=== PATIENT | female | born 1990 | race African-American/Black ===

== ENCOUNTER 2017-12-11 08:11 | Observation (INO) ==
--- NOTE | 2017-12-11 08:21 | Emergency Department Report ---
Neuro HPI - General Stated Complaint: poss seizures, cannot speak Time Seen by Provider: 12/11/17 08:20 Source: patient, family Mode of arrival: ambulatory Limitations: altered mental status - History of Present Illness HPI Narrative: Patient is a 27-year-old female presents emergent for evaluation of possible seizures, stroke. Patient awoke approximately 745 this morning, at that time was only able to say one word leg. Patient also appeared to be weak in her left her upper or lower extremity. Patient had multiple episodes where she appeared to be shaking. Patient was brought to the ER for evaluation. Per significant other patient has a history of Hadley Romberg, also did have a similar episode to this 2 weeks ago which resolved within an hour. Patient is also newly diagnosed . Onset (ago): hour(s) Time: 0745 Time Estimated: No Timing confirmed by: family member Location: speech, left arm, left leg History of same: Yes Severity: moderate Relieving factors: none Context: sudden onset - Related Data Home Medications: Home Medications Medication Instructions Recorded Confirmed No known Home medications [No home 12/11/17 12/11/17 meds] Allergies/Adverse Reactions: Allergies Allergy/AdvReac Type Severity Reaction Status Date / Time morphine Allergy Intermediate Itching Verified 12/11/17 09:29 haloperidol [From Haldol] AdvReac Intermediate muscle Verified 12/11/17 09:29 spasms Review of Systems Limitations: ROS unobtainable due to patient's medical condition [facility] Patient Stated Medical History Dental Problems Yes: teeth pulled at dentist office Asthma Yes: inhaler as needed Other Reproductive Yes: ectopic Surgical History: Appendectomy. cholecystectomy. D&C. Right salpingectomy - Social History Smoking status: Current every day smoker Alcohol intake frequency: does not drink Current occupational status: unemployed Physical Exam - Limitations Limitations: no limitations - Eye Eye exam: Present: PERRL, EOMI - ENT ENT exam: Present: normal oropharynx, mucous membranes moist, TM's normal bilaterally - Neck Neck exam: Present: trachea midline. Absent: tenderness - Chest Chest inspection: Present: symmetric chest wall rise. Absent: tenderness, rash - Respiratory Respiratory exam: Present: normal lung sounds bilaterally. Absent: respiratory distress, wheezes, stridor - Cardiovascular Cardiovascular exam: Present: regular rate, normal rhythm, normal heart sounds - Abdominal Exam Abdominal exam: Present: soft, normal bowel sounds. Absent: distention, tenderness - Skin Skin exam: Present: warm, dry - Expanded Neurological Exam Speech: Present: expressive aphasia Cranial nerves: Normal: EOM function (II, III, IV, ), facial palsy (VII), gag reflex (IX), spinal accessory function (XI), tongue deviation (XII) Motor strength - LUE: 0/5 Motor strength - RUE: 5/5 Motor strength - LLE: 0/5 Motor strength - RLE: 5/5 DTR: 2+: biceps (L), biceps (R), patellar (L), patellar (R) Coma scale eye opening: spontaneous Coma scale motor response: obeys commands Coma scale verbal response: incomprehensible Coma scale total: 12 Neuro Symptoms/Deficit - MDM Narrative Medical decision making narrative: Patient's symptoms slowly improving patient able to now converse, does have increasing strength of the extremities on the left. Did discuss with Dr. adames we'll place patient in the hospital observation status - Medical Records Attestation: I reviewed the patient's medical records. - Lab Data Attestation: I reviewed the patient's lab results. Result diagrams: 12/11/17 08:26 12/11/17 08:26 - Radiology Data Attestation: I reviewed the patient's radiology results. CT head: No acute intracranial abnormalities Disposition Prescriptions: No Action No known Home medications [No home meds] 0 #0 misc
[2017-12-11] MEDS: SALINE FLUSH 10ml SYRINGE IVF PRN ×3 (08:25→11:39)
--- NOTE | 2017-12-11 08:46 | CT Scan Report ---
Indication: left-sided weakness, only able to say leg hypertensive rule PROCEDURE: CT head/brain wo con: Encounter: Initial Comparison: None Technique: Axial CT images through the head were performed without contrast. Iterative Reconstruction dose reducing technique was utilized. FINDINGS: The ventricles are of normal size, shape, and configuration for the patient's age. There is no evidence of acute intracranial hemorrhage, midline displacement, or mass effect. The CT attenuation of the brain parenchyma is normal within the cerebellum, brain stem, and cerebral hemispheres. The tympanic cavities and mastoid air cells are free of appreciable disease. There are no definite fractures of the skull base, calvarium, or visualized portion of the midface. Trace mucosal thickening in the sinuses. IMPRESSION: No acute intracranial hemorrhage or extended infarct signs. These results were discussed with Dr. Marino at 0840 on December 11, 2017, four minutes after the conclusion of the study. .
[2017-12-11] MEDS ORDERED: KETOROLAC 30 MG/ML INJECTION IVP ONE (09:47)
[2017-12-11] MEDS ORDERED: FentaNYL 100 MCG/2 ML INJECTION IVP ONE ×2 (10:33→11:29)
[2017-12-11 10:46] VITALS: RESP 18
[2017-12-11] MEDS ORDERED: PROCHLORPERAZINE 10 MG/2 ML INJECTION IVP ONE (12:15)
--- NOTE | 2017-12-11 12:30 | Magnetic Resonance Report ---
Indication: left-sided neuro deficits rule out stroke CT negative PROCEDURE: MR head/brain wo con: Encounter: Initial Comparisons: Head CT from earlier today Technique: Multiplanar, multisequence, MR imaging of the head without contrast was acquired. FINDINGS: The ventricles are of normal size, shape, and contour for the patient's age. The brain stem, cerebellum, and cerebral hemispheres have a normal morphologic appearance as well as MR signal intensity on all pulse sequences. There are no areas of restricted diffusion on diffusion weighted imaging to suggest an acute infarct. There is no evidence of an intracranial mass lesion, intracranial hemorrhage, or hydrocephalus. The visualized portions of the orbits, calvarium and skull base demonstrate no significant abnormality. Mild mucosal thickening seen in the right anterior ethmoid air cells and sphenoid sinuses. IMPRESSION: No acute intracranial abnormality. .
[2017-12-11 13:22] VITALS: BP 133/74; TEMP 96.8; O2SAT 100
[2017-12-11 13:57] VITALS: BMI 22.6
[2017-12-11 15:14] VITALS: PULSE 71
[2017-12-11] MEDS ORDERED: ACETAMINOPHEN 325 MG TABLET PO ONE (15:17)
--- NOTE | 2017-12-11 18:02 | History & Physical Report ---
History of Present Illness Date: 12/11/17 HPI: Pt reports she comes in today because her fiance noticed her having seizure like activity two times this morning. Pt reports she doesn't remember much from this morning other than coming into the hospital. No family is at bedside to help with hx. Pt reports she remembers her mom telling her she had a couple of seizures around age 9 but nothing since until 1 week ago when she again had seizure like activity when she was with her family at an outdoors event. Her family thought it was related to the heat so they sat her down. In these episodes, pt reports she has been told she "shakes" for a couple of minutes and then she is okay. She denies any precipitating events or prodromal sx's. Reports she is drowsy afterwards. Denies any incontinence. When pt was in the ED , she reportedly couldn't move her left arm and leg and also couldn't talk. Pt is able to talk normally right now but still reports residual left arm and leg weakness. Pt denies any n/v/d, f/c, cp or sob. Review of Systems Review of systems: 10 point ros negative other than what is noted in HPI Past Medical History Medical History: Medical History (Last Updated 12/11/17 @ 18:03 by Marcie Yates MD) Justin-Romberg syndrome Surgical History: Appendectomy. cholecystectomy. D&C. Right salpingectomy Family History: No Significant Family History - Social History Smoking status: Current every day smoker Medications Home Medications Medication Instructions Recorded Confirmed Type No known Home medications [No home 12/11/17 12/11/17 History meds] Allergies Allergy/AdvReac Type Severity Reaction Status Date / Time morphine Allergy Intermediate Itching Verified 12/11/17 09:29 haloperidol [From Haldol] AdvReac Intermediate muscle Verified 12/11/17 09:29 spasms Exam Vital Signs: Temperature 96.8 F 12/11/17 13:21 Pulse Rate 71 12/11/17 13:21 Respiratory Rate 18 12/11/17 14:59 Blood Pressure 133/74 12/11/17 13:21 Pulse Oximetry 100 12/11/17 13:21 Height/Weight/BMI: Height 4 ft 10 in Weight 49 kg Body Mass Index 22.6 - Constitutional Present: no acute distress - Routine HEENT Exam Comments: right sided facial atrophy - Routine Neck Exam Present: supple - Routine Respiratory Exam Present: CTA bilaterally. Absent: wheezes, crackles - Routine Cardiovascular Exam Present: RRR, no murmur - Routine Abdominal Exam Present: soft, non distended, non tender - Routine Extremities Exam Present: no edema. Absent: cyanosis, clubbing - Routine Skin Exam Present: intact, dry - Routine Neurological Exam Present: alert, oriented X3, CN II-XII intact, motor deficit, normal reflexes, moving all extremities Left arm 4/5 strength Left leg 4/5 strength Results - Labs CBC & Chem 7: 12/11/17 08:26 12/11/17 08:26 Assessment and Plan Assessment and Plan: Left sided weakness -Likely conversion disorder -CT/MRI unremarkable, neuro exam is inconsistent -Sx's have improved, will consult psych -Teleneuro consult also agreed with conversion disorder dx per ED report -Will do bedside swallow to clear for PO intake Possible seizures -Unclear hx so difficult to say if psuedoseizures -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 will consult with neurology tomorrow -Seizure precautions, order cpk, UDS Justin-Romberg Syndrome -Pt has right sided facial atrophy Ppx -SCDs - Physician Narrative Narrative: Date: 12/11/17 Time: 1744 Hospital Course Summary Disclaimer: The visit summary below is not to be considered part of the above Progress Note.
== END 2017-12-11 18:55 | disposition left against medical advice (07) ==
LOC: ED 08:11 → EDHOLD 08:11 → MED 13:05
PROVIDERS: ADMIT Internal Medicine; ATTEND Internal Medicine